=== PATIENT | male | born 1975 | race Asian ===

== ENCOUNTER 2023-03-29 21:05 | Emergency (ER) | payer OTHER, SELFPAY ==
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
[2023-03-29 22:21] VITALS: BP 182/95; PULSE 78; RESP 16; TEMP 36.6; O2SAT 99; BMI 24.8
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
== END 2023-03-29 23:52 | disposition home or self-care (01) ==
PROVIDERS: Emergency Provider Emergency Medicine
DX: M79.5 Residual foreign body in soft tissue (principal); R31.9 Hematuria, unspecified
CPT/HCPCS: 70450; 72125; 99281; 99284